=== PATIENT | male | born 1965 | race African-American/Black ===

== ENCOUNTER 2019-10-06 23:34 | Emergency (ER) | payer OTHER ==
[~2019-10-06] VITALS: Ht 180.3 cm; Wt 99.5 kg
[2019-10-06 23:37] VITALS: BP 128/84
--- NOTE | 2019-10-06 23:52 | NUR ---
PT AMBULATES WITH STEADY GAIT TO NURSES STATION AND STATES HE WANTS TO LEAVE. NAD. PT REQUESTING TO A PHONE TO CALL HIS MOTHER IN [facility]. PT TO DC DESK AT THIS TIME.
--- NOTE | 2019-10-06 23:57 | NUR ---
PT SEEN AMBULATING STEADILY OUT OF DEPARTMENT.
== END 2019-10-06 23:59 | disposition left against medical advice (07) ==
LOC: ED 23:37
DX: Z53.21 Procedure and treatment not carried out due to patient leaving prior to being seen by health care provider (principal)

== ENCOUNTER 2019-10-11 01:01 | Emergency (ER) | payer SELFPAY ==
[~2019-10-11] VITALS: Ht 185.4 cm; Wt 99.5 kg
[2019-10-11 01:04] VITALS: BP 123/84
--- NOTE | 2019-10-11 01:34 | NUR ---
PT REFUSING TO WEAR MASK,
--- NOTE | 2019-10-11 01:42 | NUR ---
PT REFUSING TO WEAR MASK, SECURITY CALLED TO ASSIST WITH THIS.
--- NOTE | 2019-10-11 01:48 | NUR ---
PT HAS GIVEN SEVERAL DIFFERENT NAMES OVER THE COURSE OF LAST FEW DAYS
--- NOTE | 2019-10-11 01:55 | NUR ---
PT REFUSING TO WEAR MASK, PULLS OFF FACE AND THROAWS ON THE FLOOR AND STATES THAT HE IS GOING TO GO ELSEWHERE. PT AMBULATE OUT BACK DOOR WITH STEADY GAIT AND SECURITY ASSISTING.
== END 2019-10-11 02:04 | disposition left against medical advice (07) ==
LOC: ED 01:53
DX: F31.9 Bipolar disorder, unspecified (principal); I10 Essential (primary) hypertension; Z76.0 Encounter for issue of repeat prescription; Z91.14 Patient's other noncompliance with medication regimen
CPT/HCPCS: 99283